=== PATIENT | female | born 1995 | race Caucasian/White ===

== ENCOUNTER 2023-10-23 06:31 | Inpatient (IN) | payer OTHER ==
[~2023-10-23] VITALS: Ht 157.5 cm; Wt 101.4 kg
[2023-10-23] VITALS (50 sets, daily range): BP systolic 106–161; BP diastolic 57–97; PULSE 57–97; TEMP 97.5–98.8
[~2023-10-23 06:31] MED LIST: BIRTH CONTROL PILL; LR & Oxytocin 500 ML IV SCH; LR 1,000 ML IV SCH; NORCO 325 MG-51 TAB PO
--- NOTE | 2023-10-23 06:40 | NUR ---
0640 PT AMBULATORY TO UNIT WITH SPOUSE. CHANGED INTO GOWN. REPORTS OCCASIONAL BH CTX, NO PAIN. NO LOF, NO VAGINAL BLEEDING, POSITIVE MOVEMENT. DISCUSSED IOL PROCESS, PT UNDERSTANDS. CONSENT FORMS SIGNED.
--- NOTE | 2023-10-23 07:15 | NUR ---
AT BEDSIDE. SVE 2-/-2. AROM AT THIS TIME, SMALL AMOUNT MECONIUM STAINED FLUID. PT TOLERATED WELL. DR. KANG NOTIFIED OF INCREASED BP. CMP ORDERED.
[2023-10-23] MEDS ORDERED: MAGNESIUM200 MG PO (07:46)
[2023-10-23] MEDS ORDERED: CLARITIN 1010 MG/TAB PO (07:46)
[2023-10-23] MEDS ORDERED: PRENATAL TABLET PO (07:46)
[2023-10-23] MEDS ORDERED: PRILOSEC 20MG20 MG PO (07:46)
[2023-10-23 07:54] LABS: BASO % 0.4 % (0.0-2.0); EOS % 0.4 % (0.0-4.0); GRAN # 5.2 K/mm3 (1.4-6.5); GRAN % 63.2 % (42.2-75.2); HEMATOCRIT 35.2 % (37.0-47.0); HEMOGLOBIN 11.9 g/dl (12.5-16.0); LYMPH # 2.5 K/mm3 (1.2-3.4); LYMPH % 30.3 % (20.0-51.0); MEAN CELL VOLUME 91 fl (80.0-100.0); MEAN CORPUSCULAR HEMOGLOBIN 31 pg (27-31); MEAN CORPUSCULAR HGB CONC 34 g/dl (33.0-37.0); MONO # 0.5 K/mm3 (0.1-0.6); MONO % 5.5 % (1.7-9.3); PLATELET COUNT 171 K/mm3 (130-400); RED BLOOD COUNT 3.87 M/mm3 (4.10-5.30); REDCELL DISTRIBUTION WIDTH-CV 12.5 % (11.5-14.5)
[2023-10-23 08:15] LABS: ALBUMIN 2.8 g/dL (3.5-5.0); BILIRUBIN,TOTAL 0.2 mg/dL (0.2-1.2); CALCIUM 9.4 mg/dL (8.4-10.2); CREATININE, serum 0.71 mg/dL (0.57-1.11); POTASSIUM 3.8 mEq/L (3.5-4.5); TOTAL PROTEIN 6.2 g/dl (6.2-8.1)
--- NOTE | 2023-10-23 09:35 | NUR ---
PT REPORTS MIGRAINE STARTING. RN DISCUSSED GETTING BACK IN BED AND TURNING LIGHTS DOWN. PT AGREED. ALSO GAVE PEPSI AND TYLENOL.
[2023-10-23] MEDS ORDERED: Acetaminophen 500 MG TAB PO PRN ×2 (09:45→18:15)
[2023-10-23] MEDS ORDERED: ROPivacaine PF 0.2% 200 ML IV ONE (10:25)
--- NOTE | 2023-10-23 10:34 | NUR ---
PT SITTING UPRIGHT ON EDGE OF BED, PULSE OX IN PLACE, LR BOLUS COMPLETE. 1034 SINGLE SHOT ADMINISTERED PER SUPERINTENDENT. VS STABLE, DIFFICULTY TRACING EFM DUE TO MATERNAL HABITUS AND POSITIONING. 1035 TEST DOSE ADMINISTERED PER SUPERINTENDENT. PT TOLERATED WELL. PT RETURNED TO WL POSITION, VS STABLE, EFM CAT 1. IUPC FELL OUT AT THIS TIME. EXTERNAL TOCO PLACED BACK ON PT.
[2023-10-23] MEDS ORDERED: Naloxone 0.4 MG/ML VIAL IV PRN ×2 (11:00→18:15)
[2023-10-23] MEDS ORDERED: ePHEDrine 50 MG/10 ML VIAL IV PRN (11:00)
[2023-10-23] MEDS ORDERED: diphenhydrAMINE 25 MG CAP PO PRN (11:00)
[2023-10-23] MEDS ORDERED: Ondansetron 4 MG/2 ML VIAL IV PRN (11:00)
[2023-10-23] MEDS ORDERED: diphenhydrAMINE 50 MG/ML 1 ML VIAL IV PRN (11:00)
--- NOTE | 2023-10-23 13:45 | NUR ---
DR. KANG AT BEDSIDE FOR SVE. PT 0. DR. KANG ORDERS CHECK AGAIN IN 1HR AND START PUSHING IF COMPLETE. PROLONGED DECELERATION INTO 50'S NOTED AFTER SVE. REPOSITIONED PT TO LL WITH NO IMMEDIATE RESOLVE, LR BOLUS STARTED, PITOCIN PAUSED, OXYGEN PLACED. HEART RATE RECOVERED QUICKLY, PITOCIN RESUMED, OYXGEN D/C. DR. KANG STILL ON UNIT AND AWARE.
--- NOTE | 2023-10-23 15:37 | NUR ---
1537 THIS RN AND BARBARA LEE AT BEDSIDE TO MOVE PT. PROLONGED DECELERATION NOTED, PITOCIN TURNED OFF,PT MOVED TO LL WITH NO SUCCESS, PT MOVED TO HANDS AND KNEE POSITION, O2 ON, PT TOLERATING FAIR, DR. KANG NOTIFIED AND HEADING TO HOSPITAL. HR RECOVERED.
--- NOTE | 2023-10-23 15:50 | NUR ---
AT BEDSIDE, SVE /0. PRACTICE PUSH DONE AT THIS TIME. REMOVED RAMIREZ, SET ROOM UP TO PUSH. PT TOLERTATING WELL, EFM CAT 1.
[2023-10-23] MEDS ORDERED: Phenylephrine/Mineral Oil/Petrolatum 57 GM TUBE RC PRN (18:15)
[2023-10-23] MEDS ORDERED: Magnes Hydrox (MOM) 80 MG/ML 30 ML CUP PO PRN (18:15)
[2023-10-23] MEDS ORDERED: Measles/Mumps/Rubella Virus Vaccine Live w Diluent 0.5 ML VIAL SQ SCH (18:15)
[2023-10-23] MEDS ORDERED: Ibuprofen 800 MG TAB PO SCH (18:15)
[2023-10-23] MEDS ORDERED: oxyCODONE 5 MG TAB PO PRN (18:15)
[2023-10-23] MEDS ORDERED: Mag/Al Hydrox/Simeth Susp 30 ML CUP PO PRN (18:15)
[2023-10-23] MEDS ORDERED: Loratadine 10 MG TAB PO PRN (18:15)
[2023-10-23] MEDS ORDERED: Witch Hazel 50% Pads Bulk TUB TP PRN (18:15)
--- NOTE | 2023-10-23 18:30 | NUR ---
DR KANG IN ROOM, PT HAS BEEN PUSHING VERY WELL. PT UP IN STIRUPS PUSHING, PERINEUM PREPPED WITH HIBICLEANSE. TEAM HERE FOR DELIVERY AND PREPARED FOR SHOULDER DYSTOCIA.
--- NOTE | 2023-10-23 18:35 | NUR ---
1835 VAG DELIVERY OF MALE , SHOULDER DYSTOCIA FOR 5 SECS, SUPRAPUBIC PRESSURE DONE BY MOISE JONES CHARGE NURSE. NUCHAL CORD X 1 REDUCED, BAYB DELIVERED, PLACED ON MOMS ABD, DRIED AND STIMULATED THEN BABY TAKEN TO WARMER BY NURSERY NURSE CARMEN MCCANN.
--- NOTE | 2023-10-23 18:38 | NUR ---
[facility] DELIVERED INTACT. PITOCIN STARTED AT 333 ML/HR VIA PUMP. PERINEAL REPAIR DONE FOR 2ND DEGREE LAC.
--- NOTE | 2023-10-23 19:00 | NUR ---
FUNDAL PRESSURE DONE, MODERATE AMT BLOOD AND CLOTS NOTED. DR KANG STILL HERE AND NOTIFIED OF BLEEDING. SHE CAME IN TO ASSESS. ORDER NOTED FOR CYTOTEC 600 MCG RECTAL. 1907 CYTOTEC 600 MCG PLACED.
[2023-10-23] MEDS ORDERED: MOTRIN 800800 MG/TAB PO (19:57)
[2023-10-23] MEDS ORDERED: traZODone 50 MG TAB PO PRN (21:00)
--- NOTE | 2023-10-23 23:22 | NUR ---
pt amb to br to void 335 cc. pericare done. pads and panties changed. assisted to start breast feeding the baby. at beside to help her.
[2023-10-24] MEDS ORDERED: miSOPROStol 200 MCG TAB RC ONE
[2023-10-24 00:05] VITALS: BP 123/69; PULSE 79; TEMP 98.1
[2023-10-24 04:30] VITALS: BP 118/68; PULSE 76; TEMP 98.1
[2023-10-24] MEDS ORDERED: Sennosides/Docusate 8.6-50 MG TAB PO SCH (08:00)
[2023-10-24 09:00] VITALS: BP 130/83; PULSE 95
[2023-10-24 16:05] VITALS: BP 128/62; PULSE 86; TEMP 98.6
[2023-10-24 20:40] VITALS: BP 135/92; PULSE 85; TEMP 98.2
[2023-10-25 08:11] VITALS: BP 124/68; PULSE 76; TEMP 98.1
== END 2023-10-25 11:39 | disposition home or self-care (01) | DRG 807 ==
LOC: LDR 06:31 → OB 21:30 → LDR 23:27 → OB 10-25 11:39
PROVIDERS: ADMIT Obstetrics & Gynecology
PROC: 10E0XZZ Delivery of Products of Conception, External Approach (ICD-10-PCS; principal; 2023-10-23)
PROC: 0KQM0ZZ Repair Perineum Muscle, Open Approach (ICD-10-PCS; 2023-10-23)
PROC: 3E033VJ Introduction of Other Hormone into Peripheral Vein, Percutaneous Approach (ICD-10-PCS; 2023-10-23)
PROC: 10907ZC Drainage of Amniotic Fluid, Therapeutic from Products of Conception, Via Natural or Artificial Opening (ICD-10-PCS; 2023-10-23)
DX: O99.214 Obesity complicating childbirth (principal); Z37.0 Single live birth; Z3A.39 39 weeks gestation of pregnancy; O36.63X0 Maternal care for excessive fetal growth, third trimester, not applicable or unspecified; O99.62 Diseases of the digestive system complicating childbirth; K21.9 Gastro-esophageal reflux disease without esophagitis; O77.0 Labor and delivery complicated by meconium in amniotic fluid; O66.0 Obstructed labor due to shoulder dystocia; O69.81X0 Labor and delivery complicated by cord around neck, without compression, not applicable or unspecified; O70.1 Second degree perineal laceration during delivery; O13.4 Gestational [pregnancy-induced] hypertension without significant proteinuria, complicating childbirth; O76 Abnormality in fetal heart rate and rhythm complicating labor and delivery
CPT/HCPCS: J2590; J2795; J7120